=== PATIENT | female | born 1950 | race Caucasian/White ===

== ENCOUNTER → 2016-08-30 | Outpatient (CLI) | payer OTHER ==
--- NOTE | 2016-08-30 15:56 | BD ---
EXAMINATION TYPE: MG DEXA axial skeleton. DATE OF EXAM: 08/30/2016 1:37 PM COMPARISON: 03.02.2009 CLINICAL HISTORY: Z78.0 POST MENOPAUSAL W/O HRT Height: 63.3 Weight: 180 FRAX RISK QUESTIONS: Alcohol (3 or more units per day): NO Family History (Parent hip fracture): NO BROKEN HIPS, BUT FAMILY HX Glucocorticoids (More than 3mos): NO (Ex: prednisone, prednisolone, methylprednisolone, dexamethasone, and hydrocortisone). History of Fracture in Adulthood: YES Secondary Osteoporosis: NO 1. Type 1 Diabetes: NO 2. Hyperthyroidism: NO 3. Menopause before 45: YES 4. Malnutrition: NO 5. Chronic liver disease: NO Rheumatoid Arthritis: NO Current Tobacco Use: NO RISK FACTORS HISTORY OF: Other Fractures since Age 51: RT ELBOW AND LT ANKLE When: AGE 55 Family History of Osteoporosis: YES, FATHER AND MOTHER, BROTHERS X2 AND SISTERS X2, Smoke tobacco: QUIT 30 YRS AGO Drink Alcohol: NONE Active: TRY TO BE Diet low in dairy products/other sources of calcium: NO Postmenopausal woman: YES, TOTAL HYST AT 40 YRS OLD Adrenal Insufficiency: NO MEDICATIONS: Additional Medications: BP MEDS, ZANTAC, VIT D Additional History: NONE TO NOTE EXAM MEASUREMENTS: Bone mineral densitometry was performed using the [employer] System. Bone mineral density as measured about the Lumbar spine is: ----- L1-L4(G/cm2): 0.913 T Score Values are as follows: ----- L1: -3.0 ----- L2: -2.7 ----- L3: -2.0 ----- L4: -1.5 ----- L1-L4: -2.2 Bone mineral density FIRST BONE DENSITY TEST FOR HER ......BASELINE Bone mineral density about the R hip (g/cm2): 0.752 Bone mineral density about the L hip (g/cm2): 0.730 T Score values are as follows: -----R Neck: -2.0 -----L Neck: -2.2 -----R Total: -2.0 -----L Total: -2.2 Bone mineral density BASELINE STUDY TODAY FRAX %'S: 18.2% CHANCE FOR A MAJOR OSTEOPOROTIC FX AND A 3.1% CHANCE FOR A HIP FX......PROBABILITY OF FX IN 10 YRS TIME IMPRESSION: Osteoporosis (T Score less than -2.5) as noted by T Score values at the There is increased fracture risk and therapy is usually indicated based on age. Re-Screen 1-2 years Bone density is present within the lumbar spine. NOTE: T-SCORE=SD OF THE YOUNG ADULT MEAN.
--- NOTE | 2016-09-03 09:45 | MM ---
Reason for exam: screening (asymptomatic). Last mammogram was performed 1 year and 3 months ago. History: Patient is postmenopausal. Family history of breast cancer in maternal grandmother at age 65. Physical Findings: A clinical breast exam by your physician is recommended on an annual basis and results should be correlated with mammographic findings. MG Screening Mammo w CAD Bilateral CC and MLO view(s) were taken. Prior study comparison: May 30, 2015, bilateral MG screening mammo w CAD. There are scattered fibroglandular densities. No significant changes when compared with prior studies. ASSESSMENT: Benign, BI-RAD 2 RECOMMENDATION: Routine screening mammogram of both breasts in 1 year.
== END | disposition home or self-care (01) ==
LOC: RADMAMWWP 13:34
PROVIDERS: ATTEND Family Medicine
DX: Z12.31 Encounter for screening mammogram for malignant neoplasm of breast (principal); Z78.0 Asymptomatic menopausal state; M81.0 Age-related osteoporosis without current pathological fracture
CPT/HCPCS: 77080; G0202

== ENCOUNTER → 2017-01-14 | Outpatient (CLI) | payer MEDICARE, OTHER ==
[~2017-01-14] MED LIST: DENOSUMAB 60 MG/ML 1 ML SYRINGE SQ ONE
[2017-01-14 14:52] VITALS: BP 138/82; PULSE 97; RESP 14; TEMP 98.8
== END | disposition home or self-care (01) ==
LOC: PROCWHC3 14:23
PROVIDERS: ATTEND Family Medicine
DX: M81.0 Age-related osteoporosis without current pathological fracture (principal)
CPT/HCPCS: 96372; J0897

== ENCOUNTER → 2017-09-18 | Outpatient (CLI) | payer MEDICARE, OTHER ==
--- NOTE | 2017-09-22 11:02 | MM ---
Reason for exam: screening (asymptomatic). Last mammogram was performed 1 year and 1 month ago. History: Patient is postmenopausal. Family history of breast cancer in maternal grandmother at age 65. Physical Findings: A clinical breast exam by your physician is recommended on an annual basis and results should be correlated with mammographic findings. MG 3D Screening Mammo W/Cad Bilateral CC and MLO view(s) were taken. Prior study comparison: August 30, 2016, bilateral MG screening mammo w CAD. May 30, 2015, bilateral MG screening mammo w CAD. There are scattered fibroglandular densities. No suspicious abnormality. No significant changes when compared with prior studies. ASSESSMENT: Negative, BI-RAD 1 RECOMMENDATION: Routine screening mammogram of both breasts in 1 year.
== END | disposition home or self-care (01) ==
LOC: RADMAMWWP 14:42
PROVIDERS: ATTEND Family Medicine
DX: Z12.31 Encounter for screening mammogram for malignant neoplasm of breast (principal)
CPT/HCPCS: 77063; 77067

== ENCOUNTER 2018-03-15 18:31 | Observation (INO) | payer MEDICARE, OTHER ==
--- NOTE | 2018-03-15 19:03 | ED ---
General Adult HPI - General Chief complaint: Extremity Injury, Upper Stated complaint: Trans from [facility]Fractures Source: EMS Mode of arrival: EMS Limitations: no limitations - History of Present Illness Initial comments: Dictation was produced using [employer] dictation software. please excuse any grammatical, word or spelling errors. Chief Complaint: 67-year-old female with past medical history of hypertension presents to our emergency department via transfer for orthopedic injuries. History of Present Illness: Patient is a 67-year-old female. Proximal thigh 3 PM she was taken a step down in her garage when she inverted her ankle. She felt a pop causing her to fall forward. She reached out with her left upper extremity and felt immediate pain in her left upper extremity. She was brought emergently to [facility] where she was evaluated. She is found to have a trimalleolar fracture of the left ankle with 1 cm lateral displacement of the talus and impacted comminuted transverse fracture of the distal radius. Ankle was reduced and splinted by Dr. Panchal at [facility]. The left wrist injury was splinted. Patient is transferred to our facility per request. They'll is really do not have orthopedic surgery at their facility. Documentation patient's fracture was closed however there was some skin tenting which improved post adduction and splint application. The ROS documented in this emergency department record has been reviewed and confirmed by me. Those systems with pertinent positive or negative responses have been documented in the HPI. All other systems are other negative and/or noncontributory. - Related Data Home Medications Medication Instructions Recorded Confirmed Acetaminophen Tab [Tylenol Tab] 500 mg PO Q6H 01/14/17 01/14/17 Calcium Carbonate [Calcium] 1,200 mg PO DAILY 01/14/17 01/14/17 Cholecalciferol [Vitamin D3] 1,000 unit PO DAILY 01/14/17 01/14/17 Lisinopril 40 mg PO DAILY 01/14/17 01/14/17 Pravastatin Sodium [Pravachol] 40 mg PO HS 01/14/17 01/14/17 Ranitidine HCl 150 mg PO HS PRN 01/14/17 01/14/17 Tolterodine Tartrate [Detrol LA] 2 mg PO DAILY 01/14/17 01/14/17 Allergies Allergy/AdvReac Type Severity Reaction Status Date / Time Penicillins Allergy Rash/Hives Verified 03/15/18 18:54 Wqr[place]a-Wqy-Wct Reductase Allergy Rash/Hives Verified 03/15/18 18:54 Inhibitor Review of Systems ROS Statement: Those systems with pertinent positive or pertinent negative responses have been documented in the HPI. ROS Other: All systems not noted in ROS Statement are negative. Past Medical History Past Medical History: Unable to Obtain History of Any Multi-Drug Resistant Organisms: None Reported Past Surgical History: Unable to Obtain Past Psychological History: No Psychological Hx Reported Smoking Status: Former smoker Past Alcohol Use History: None Reported Past Drug Use History: None Reported General Exam - General Exam Comments Initial Comments: PHYSICAL EXAM: General Impression: Alert and oriented x3, not in acute distress HEENT: Normocephalic atraumatic, extra-ocular movements intact, pupils equal and reactive to light bilaterally, mucous membranes moist. Cardiovascular: Heart regular rate and rhythm, S1&S2 audible, no murmurs, rubs or gallops Chest: Lungs clear to auscultation bilaterally, no rhonchi, no wheeze, no rales Abdomen: Bowel sounds present, abdomen soft, non-tender, non-distended, no organomegaly Musculoskeletal: Splint application to left upper and left lower extremity. There is good cap refill 2 to distal tips. She has intact sensation to light touch. Motor: Power 5/5 bilaterally, no focal deficits noted Neurological: CN II-XII grossly intact, no focal motor or sensory deficits noted Skin: Intact with no visualized rashes Psych: Normal affect and mood Limitations: no limitations Course Vital Signs 03/15/18 18:50 Temperature 98.7 F Pulse Rate 111 H Respiratory 18 Rate Blood Pressure 131/59 O2 Sat by Pulse 96 Oximetry Medical Decision Making - Medical Decision Making ED course: 67-year-old female presents to us via EMS from [facility] for orthopedic surgery care. Arrival are within acceptable limits. Patient appears stable at this time. Prior to patient's arrival case was discussed with Dr. Akers was willing to accept the patient. He requested patient be splinted and transferred for orthopedic surgery. Patient pain is controlled at this moment. Images were uploaded into our computer. Patient be admitted to Dr. Hodges and with orthopedic surgery on consult. Disposition Clinical Impression: Fracture Disposition: ADMITTED IP TO THIS HOSP Condition: Fair Referrals: Scot Hodges MD [Primary Care Provider] - 1-2 days Decision Time: 19:22
[2018-03-15] MEDS ORDERED: NALOXONE 0.4 MG/ML 1 ML VIAL IV PRN (19:22)
[2018-03-15] MEDS: MORPHINE SULFATE 4 MG/ML SYRINGE IV PRN (19:56)
[2018-03-15] MEDS: SODIUM CHLORIDE 0.9% 1,000 ML IV SCH (19:58)
[2018-03-15] MEDS: oxyCODONE-APAP 5-325MG 1 EACH TAB PO PRN (20:50)
[2018-03-16] MEDS: MORPHINE SULFATE 4 MG/ML SYRINGE IV PRN ×4 (00:12→12:28)
[2018-03-16] MEDS: oxyCODONE-APAP 5-325MG 1 EACH TAB PO PRN ×6 (01:11→21:19)
[2018-03-16] MEDS: SODIUM CHLORIDE 0.9% 1,000 ML IV SCH ×2 (05:29→21:18)
[2018-03-16] MEDS: HYDROmorphone 1 MG/ML 1 ML SYRINGE IVP PRN ×2 (11:00→15:20)
[2018-03-16] MEDS ORDERED: FAMOTIDINE 20 MG TAB PO PRN (11:06)
[2018-03-16] MEDS ORDERED: ACETAMINOPHEN TAB 500 MG TAB PO PRN (11:06)
--- NOTE | 2018-03-16 11:56 | XR ---
EXAMINATION TYPE: XR wrist complete LT DATE OF EXAM: 03/16/2018 CLINICAL HISTORY: Left wrist pain after injury TECHNIQUE: Frontal, lateral and oblique images of the left wrist are obtained. Scaphoid view was als o obtained. COMPARISON: 03/15/2018 FINDINGS: Although outside images are submitted for comparison. Images are suboptimal after scant an d nondiagnostic. There is dorsal displacement of the comminuted intra-articular distal radial fractur e. Dorsal displacement measures approximately 6 mm with minimal apex volar angulation and overlying s oft tissue swelling. There is diffuse osseous demineralization. No additional fracture is seen althou gh evaluation is slightly limited given overlying casting material. Mild arthropathy at the first car pometacarpal joint is seen as osteophytes. IMPRESSION: Casting of a minimally dorsally displaced comminuted intra-articular slightly volar angul ated distal radial fracture.
[2018-03-16] MEDS: GABAPENTIN 400 MG CAP PO SCH ×3 (12:39→21:19)
--- NOTE | 2018-03-16 12:42 | XR ---
EXAMINATION TYPE: XR ankle complete LT DATE OF EXAM: 03/16/2018 CLINICAL HISTORY: Left ankle pain after injury TECHNIQUE: Frontal, lateral and oblique images of the left ankle are obtained. COMPARISON: None. FINDINGS: Outside images are nondiagnostic as a bloated. Cast material overlies the left ankle. Ther e is diastases of a medial malleolus fracture with distraction measuring 5 mm and anterior displaceme nt of approximately 8 mm on the lateral view. Obliquely oriented comminuted fractures of the distal f ibula is displaced approximately 4 mm posteriorly. Posterior malleolus fracture is mildly displaced 4 mm. No additional fracture is seen. Talar dome is maintained. There is slight medial subluxation of the tibia on the talus. IMPRESSION: Casting of a trimalleolar fracture with displaced fracture fragments as described above.
[2018-03-16] MEDS ORDERED: DIAZEPAM 5 MG TAB PO PRN (13:07)
--- NOTE | 2018-03-16 13:38 | HP ---
HISTORY AND PHYSICAL CHIEF COMPLAINT: Fall with fracture of the left ankle and left arm. HISTORY OF PRESENT ILLNESS: This is the first known admission for this 67-year-old otherwise healthy white female. She apparently missed a step in the garage, twisted her ankle, fell and then broke her left wrist. She came to emergency room where she was found to have a trimalleolar fracture of the left ankle and radial fracture left wrist. REVIEW OF SYSTEMS: She has had no syncope, chest pain, orthopnea, loss of consciousness, loss of sphincter control, etc. Review of systems she has had no neurologic problems, change in vision or hearing, cough, hemoptysis, shortness of breath, chest pain, palpitations, murmurs, rheumatic fever, orthopnea, PND, abdominal pain, nausea, vomiting, hematemesis, melena, hematochezia, colitis, diverticulosis, diverticulitis, hemorrhoids, jaundice, hepatitis, cirrhosis, hematuria, renal failure, arthralgias, diabetes, etc. Past medical history reveals that she cannot take STATINS. In terms of medication, she is a gabapentin 800 mg 4 times a day for a post herpetic neuralgia. She is on pravastatin 40 at bedtime, ranitidine 150 a day, lisinopril 40 once a day, Pepcid, vitamin D. The remainder of her history is unremarkable and noncontributory. She used to smoke, but has quit. She does not drink. PHYSICAL EXAMINATION: Blood pressure 122/80, pulse of 80, respirations 16. She is afebrile. GENERAL: She appeared to be well developed, well nourished, in no acute distress. Skin color is normal. Skin is warm, dry. Lymph nodes are not enlarged. Head, ears, eyes, nose, mouth, and throat were normal. Neck veins not distended. Thyroid enlarged. Chest is clear. Cardiac exam is normal sinus rhythm and there are no murmurs or extra sounds. Abdomen is soft, nontender without any visceromegaly or masses. Bowel sounds present. Extremities demonstrated a splint on her left forearm and wrist as well as her left lower leg and ankle. Neurologically, she is intact. IMPRESSION: 1. Trimalleolar fracture of the left ankle. 2. Fracture of the distal left radius. 3. Mild essential hypertension. PLAN: 1. Bed rest. 2. IV fluids. 3. Orthopedic consult. She is cleared for surgery. JAMAAL / REAL: [id number] /
--- NOTE | 2018-03-16 14:35 | P.CNOR ---
History of Present Illness - [facility] Consult date: 03/16/18 Requesting physician: Tanvir Akers Consult reason: fracture History of present illness: Patient is a pleasant 67-year-old female seen at bedside this afternoon. She was admitted through the emergency department yesterday, 03/15/2018 after a fall at her niece's house. She stumbled down the last few steps which her ankle gave way and then also landed on her left wrist. She developed immediate significant pain at the left wrist and left ankle. X-rays at [facility] showed displaced fractures at the left distal radius as well as a left ankle trimalleolar fracture. She was transferred to [facility] for further orthopedic evaluation management. She continues to have pain at the left wrist and left ankle as expected. She has no other complaints. She has no elbow or shoulder pain. There is no numbness or tingling. She has no knee or hip pain. Review systems negative for fever, chills, chest pain, shortness breath, calf pain, numbness, tingling, slurred speech or other. Review of Systems All systems: negative Constitutional: Denies chills, Denies fever Eyes: denies blurred vision, denies pain Ears, nose, mouth and throat: Denies headache, Denies sore throat Cardiovascular: Denies chest pain, Denies shortness of breath Respiratory: Denies cough Gastrointestinal: Denies abdominal pain, Denies diarrhea, Denies nausea, Denies vomiting Genitourinary: Denies dysuria, Denies hematuria Musculoskeletal: Denies myalgias Integumentary: Denies pruritus, Denies rash Neurological: Denies numbness, Denies weakness Psychiatric: Denies anxiety, Denies depression Endocrine: Denies fatigue, Denies weight change Past Medical History Past Medical History: Hyperlipidemia, Hypertension History of Any Multi-Drug Resistant Organisms: None Reported Past Surgical History: Orthopedic Surgery Additional Past Surgical History / Comment(s): right wrist, c section X 2, hysterectomy Past Anesthesia/Blood Transfusion Reactions: No Reported Reaction Past Psychological History: No Psychological Hx Reported Smoking Status: Former smoker Past Alcohol Use History: None Reported Past Drug Use History: None Reported - Past Family History Mother Family Medical History: Cancer, Hyperlipidemia, Hypertension Father Family Medical History: Asthma, Cancer, CVA/TIA, Hyperlipidemia, Hypertension Medications and Allergies Home Medications Medication Instructions Recorded Confirmed Type Acetaminophen Tab [Tylenol Tab] 500 mg PO Q6H PRN 01/14/17 03/15/18 History Calcium Carbonate [Calcium] 1,200 mg PO DAILY 01/14/17 03/15/18 History Cholecalciferol [Vitamin D3] 1,000 unit PO DAILY 01/14/17 03/15/18 History Lisinopril 40 mg PO DAILY 01/14/17 03/15/18 History Pravastatin Sodium [Pravachol] 40 mg PO HS 01/14/17 03/15/18 History Ranitidine HCl 150 mg PO HS PRN 01/14/17 03/15/18 History Ascorbic Acid [Vitamin C] 500 mg PO DAILY 03/15/18 03/15/18 History Gabapentin 800 mg PO QID 03/15/18 03/15/18 History Multivitamin,Therapeutic [Thera] 1 tab PO DAILY 03/15/18 03/15/18 History Solifenacin Succinate [Vesicare] 5 mg PO DAILY 03/15/18 03/15/18 History Aspirin 325 mg PO BID #60 tab 03/16/18 Rx Docusate [Colace] 100 mg PO BID #60 capsule 03/16/18 Rx oxyCODONE HCL/ACETAMINOPHEN 1 tab PO Q4HR PRN #30 tab 03/16/18 Rx [Percocet 5-325 mg] Allergies Allergy/AdvReac Type Severity Reaction Status Date / Time Penicillins Allergy Rash/Hives Verified 03/15/18 19:34 Qcjkcwe-Vyu-Vhh Reductase Allergy Rash/Hives Verified 03/15/18 19:34 Inhibitor Physical Examination Inspection of the left upper extremity shows swelling/edema at the left wrist with mild deformity. There is no erythema or open wounds. Neurovascular status intact with 2+ radial pulse and less than 2 second capillary refill in all digits. There is pain with passive range of motion at the left elbow. Motor and sensation is grossly intact throughout the left upper extremity. Inspection of the left lower extremity shows fracture blisters at the medial lateral aspect of the distal left lower extremity. There is no signs of infection. There is no erythema. No open wounds. There is swelling at the left ankle with mild deformity. Calf is soft and nontender. There is 2+ dorsalis pedis pulse and less than 2 second refill in all digits. She is able to wiggle all toes. Sensation to light touch is intact throughout the left lower extremity. She has painless range of motion of the left knee. Results X-rays of the left wrist show a comminuted intra-articular dorsally displaced left distal radius fracture. X-rays of the left ankle show a comminuted trimalleolar fracture with lateral subluxation. - Diagnostic results Wrist/Hand x-ray: report reviewed, image reviewed Ankle/Foot x-ray: report reviewed, image reviewed Assessment and Plan (1) Fracture Narrative/Plan: Well padded splints were applied to the left upper extremity and left lower extremity to mobilize and stabilize the fractures. I advised to continue elevation as well as ice. She is to be nonweightbearing with left lower extremity and left upper extremity. Continue pain management and DVT prophylaxis. Medical management per internal medicine. She may use a wheelchair or platform walker for mobilization. She may discharge from an orthopedic standpoint and she was instructed to follow-up in office in 1 week to assess swelling and consideration for proceeding with surgical intervention. Current Visit: Yes Status: Acute Priority: Medium Code(s): T14.8XXA - OTHER INJURY OF UNSPECIFIED BODY REGION, INITIAL ENCOUNTER SNOMED Code(s): 963351606 (2) Left radial fracture Current Visit: Yes Status: Acute Priority: Medium Code(s): S52.92XA - UNSP FRACTURE OF LEFT FOREARM, INIT FOR CLOS FX SNOMED Code(s): 13640305 (3) Trimalleolar fracture Current Visit: Yes Status: Acute Priority: Medium Code(s): S82.853A - DISPLACED TRIMALLEOLAR FRACTURE OF UNSP LOWER LEG, INIT SNOMED Code(s): 683206114 Time with Patient: Greater than 30 (Reviewing her neurologic studies, in reviewing patient, examining patient, applying sugar tong splint to left upper extremity, applying posterior and stirrup splint to the left lower extremity)
[2018-03-16] MEDS: diphenhydrAMINE 25 MG CAP PO PRN (15:57)
--- NOTE | 2018-03-16 19:53 | PN ---
PROGRESS NOTE DATE OF SERVICE: 03/16/2018 CHIEF COMPLAINT: Fracture of the left ankle, left wrist. HISTORY OF PRESENT ILLNESS: This lady is doing fairly well except for the discomfort. She has had no shortness of breath. She has had no nausea. Temperature has been normal. PHYSICAL EXAM: Color is good. VITAL SIGNS: Normal. Chest is clear. Cardiac exam is normal. Abdomen is soft, nontender. IMPRESSION: 1. Left trimalleolar fracture. 2. Left radial fracture of the wrist. 3. Hypertension. PLAN: Await for orthopedic decision as to when she will undergo surgery. MMODL / IJN: [id number] /
[2018-03-17 01:02] VITALS: RESP 16
[2018-03-17] MEDS: oxyCODONE-APAP 5-325MG 1 EACH TAB PO PRN ×4 (01:17→13:45)
[2018-03-17] MEDS: SODIUM CHLORIDE 0.9% 1,000 ML IV SCH ×2 (05:12→13:43)
[2018-03-17 07:43] VITALS: BP 125/72; PULSE 104; TEMP 98.5
[2018-03-17] MEDS ORDERED: LISINOPRIL 20 MG TAB PO SCH (09:00)
[2018-03-17] MEDS ORDERED: TROSPIUM CHLORIDE 20 MG TABLET PO SCH (09:00)
[2018-03-17] MEDS ORDERED: CALCIUM CARBONATE 500 MG CHEWABLE PO SCH (09:00)
[2018-03-17] MEDS: GABAPENTIN 400 MG CAP PO SCH ×2 (09:33→13:45)
[2018-03-17] MEDS: diphenhydrAMINE 25 MG CAP PO PRN (09:35)
--- NOTE | 2018-03-17 11:22 | P.PN ---
Subjective Progress Note Date: 03/17/18 Principal diagnosis: Left distal radius fracture, left trimalleolar ankle fracture patient is seen at bedside this morning. She feels her pain at the left wrist and left ankle is stabilized. She has no new complaints. She denies numbness or tingling in the upper or lower extremity. She has no calf pain, fever, chills, chest pain or shortness breath. Objective - Vital Signs Vital signs: Vital Signs Temp 98.5 F 03/17/18 07:42 Pulse 104 H 03/17/18 07:42 Resp 16 03/17/18 07:42 BP 125/72 03/17/18 07:42 Pulse Ox 98 03/17/18 07:42 Intake & Output 03/16/18 03/17/18 03/17/18 18:59 06:59 18:59 Intake Total 240 1000 180 Balance 240 1000 180 Intake: Intake, IV Titration 1000 Amount Sodium Chloride 0.9% 1, 1000 000 ml @ 100 mls/hr IV . Q10H [facility] Rx#:[id number] Oral 240 180 Other: Voiding Method Bedpan # Voids 2 3 2 # Bowel Movements 1 1 - Exam inspection of the left upper [place] shows well-padded splint in place. Neurovascular status is intact in all digits with motor and sensation. Less than 2 second capillary refill is present. Inspection of the left lower extremity shows a well-padded splint placed. Neurovascular status intact in all digits with motor and sensation. Less than 2 second capillary refill is present - Constitutional General appearance: Present: no acute distress Assessment and Plan (1) Fracture Narrative/Plan: she has swelling and fracture blisters thus surgery will not be performed until swelling has resided and blisters resolved. I advised to continue elevation as well as ice. She is to be nonweightbearing with left lower extremity and left upper extremity. Continue pain management and DVT prophylaxis. Medical management per internal medicine. She may use a wheelchair or platform walker for mobilization. She may discharge from an orthopedic standpoint and she was instructed to follow-up in office in 1 week to assess swelling and consideration for proceeding with surgical intervention. Current Visit: Yes Status: Acute Priority: Medium Code(s): T14.8XXA - OTHER INJURY OF UNSPECIFIED BODY REGION, INITIAL ENCOUNTER SNOMED Code(s): 686728107 (2) Left radial fracture Current Visit: Yes Status: Acute Priority: Medium Code(s): S52.92XA - UNSP FRACTURE OF LEFT FOREARM, INIT FOR CLOS FX SNOMED Code(s): 30044149 (3) Trimalleolar fracture Current Visit: Yes Status: Acute Priority: Medium Code(s): S82.853A - DISPLACED TRIMALLEOLAR FRACTURE OF UNSP LOWER LEG, INIT SNOMED Code(s): 760476520
--- NOTE | 2018-03-18 04:56 | DS ---
DISCHARGE SUMMARY CHIEF COMPLAINT: Fall with fracture of the left wrist and left ankle. HISTORY OF PRESENT ILLNESS AND PHYSICAL EXAM: Details of this lady's history and physical can be found in the initial workup. LABORATORY STUDIES: While she was in the hospital she had laboratory studies, details of which can be found in the laboratory section of her chart. COURSE IN HOSPITAL: After admission she was placed on bedrest, started on intravenous fluids and analgesics. See was seen by Surgery and they felt that she could be discharged to outpatient followup. She will have her surgery in 2 to 3 weeks after the swelling has receded. FINAL DIAGNOSES: 1. Trimalleolar fracture of the left ankle. 2. Left radial fracture. 3. Hypertension. OPERATIONS: None. CONSULTATIONS: Orthopedics. She is improved. MMELIZA / REAL: [id number] /
== END 2018-03-17 14:32 | disposition home health service (06) ==
LOC: EC 18:31 → INTOOBSV 19:24 → 4SSUR 19:24
PROVIDERS: ADMIT Family Medicine; ATTEND Family Medicine
DX: S52.502A Unspecified fracture of the lower end of left radius, initial encounter for closed fracture (principal); S82.852A Displaced trimalleolar fracture of left lower leg, initial encounter for closed fracture; I10 Essential (primary) hypertension; B02.29 Other postherpetic nervous system involvement; E78.5 Hyperlipidemia, unspecified; W10.9XXA Fall (on) (from) unspecified stairs and steps, initial encounter; Y92.008 Other place in unspecified non-institutional (private) residence as the place of occurrence of the external cause; Z79.899 Other long term (current) drug therapy; Z79.82 Long term (current) use of aspirin; Z88.0 Allergy status to penicillin; Z88.8 Allergy status to other drugs, medicaments and biological substances; Z87.891 Personal history of nicotine dependence; W01.0XXA Fall on same level from slipping, tripping and stumbling without subsequent striking against object, initial encounter; Z82.49 Family history of ischemic heart disease and other diseases of the circulatory system; Z82.5 Family history of asthma and other chronic lower respiratory diseases; Z82.3 Family history of stroke; Z80.9 Family history of malignant neoplasm, unspecified
CPT/HCPCS: 96376; 96375; 96361; 96374; 99285; 97162; 97166; 73110; 73610; G0378 ×4; J2270 ×2; J1170

== ENCOUNTER → 2018-03-25 | Outpatient (CLI) | payer MEDICARE ==
--- NOTE | 2018-03-25 13:29 | CT ---
EXAMINATION TYPE: CT ankle LT wo con DATE OF EXAM: 03/25/2018 COMPARISON: Left ankle radiographs dated 03/25/2018 HISTORY: Left ankle fracture. TECHNIQUE: Standard unenhanced axial CT was performed of the left ankle with coronal and sagittal ref ormats for review. FINDINGS: Overlying casting material is seen. There is subcutaneous edema over the distal left fibula and extending circumferentially around the ankle, hindfoot and midfoot without subcutaneous emphysem a. Evaluation of the tendons and ligaments are limited on CT and further limited secondary to edema h owever there is presumed injury of the peroneus brevis tendon and suspicion for peroneus longus tendo n injury. There is redemonstration of a comminuted displaced distal fibular fracture at 2 locations approximate ly 8 mm from the most distal aspect of the fibula that is nondisplaced and approximately 4.8 cm in th e most distal aspect the fibula, displaced. This fracture fragment is displaced 1.1 cm laterally and 6.6 cm posteriorly again with comminution. There is medial subluxation of the talotibial joint. There is a comminuted primarily transversely oriented fracture of the medial malleolus with diastases of the primary fracture site of 7 mm. There is apex medial angulation of this fracture. Additionally there is a displaced posterior malleolus fracture that is primarily vertically oriented. This is sli ghtly oblique oriented lateral to medial and intra-articular. This is displaced 3 mm posteriorly and 4 mm superiorly. Talar dome appears intact although sclerosis may be from impaction injury. There is a small fragment adjacent to the cuboid at its inferior margin that could relate to avulsion injury f rom the base of the fifth metatarsal as it is along the course of the peroneus brevis. Calcaneus appe ars intact. IMPRESSION: 1. Casted bimalleolar fracture with intra-articular extension, comminution, displacement and angulati on all described above with overlying soft tissue swelling. 2. Suspicion for avulsion fracture of the base of the fifth metatarsal along the peroneus brevis. 3. Slight sclerosis of the talar dome possibly from impaction injury. No osteochondral defect or depr ession. No overt fracture deformity.
--- NOTE | 2018-03-25 13:33 | CT ---
EXAMINATION TYPE: CT wrist LT wo con DATE OF EXAM: 03/25/2018 COMPARISON: Left wrist radiograph dated 03/16/2018 HISTORY: Pain post trauma. Pre Op scan CT DLP: 339.2 mGycm Automated exposure control for dose reduction was used. FINDINGS: There is redemonstration of a comminuted impaction fracture of the distal radius with apex volar angu lation with angle measuring 130 degrees and dorsal displacement of the distal fracture fragment 7 mm. Fracture fragment is displaced dorsal to the lunate. There is no scapholunate carpal carpal interspa [place] widening. Fractures fragment is also noted within the distal radioulnar joint. Subchondral cysts are seen of the distal ulna with no ulnar styloid fracture identified. Degenerative changes are noted at the first carpometacarpal joint displayed as osteophytes and subchondral cysts with joint space n arrowing. Evaluation of the ligaments and tendons are limited on CT. Mild soft tissue swelling is see n about the wrist. IMPRESSION: REDEMONSTRATION OF A CASTED INTRA-ARTICULAR MINIMALLY VOLAR ANGULATED DORSALLY DISPLACED DISTAL RADIA L IMPACTION FRACTURE DESCRIBED ABOVE.
== END | disposition home or self-care (01) ==
LOC: RADCTMAIN 12:17
PROVIDERS: ATTEND Orthopaedic Surgery Sports Medicine
DX: S82.842A Displaced bimalleolar fracture of left lower leg, initial encounter for closed fracture (principal); M89.8X7 Other specified disorders of bone, ankle and foot; S52.512D Displaced fracture of left radial styloid process, subsequent encounter for closed fracture with routine healing

== ENCOUNTER 2018-04-03 10:13 | Day surgery (SDC) | payer MEDICARE ==
[2018-04-01 09:39] VITALS: BMI 29.7
[~2018-04-03 10:13] MED LIST changes: -DENOSUMAB 60 MG/ML 1 ML SYRINGE SQ ONE; +DEXAMETHASONE SOD PHOSPHATE 10 MG/ML 1 ML VIAL IV ONE; +MIDAZOLAM (PF) 2 MG/2 ML VIAL IV PRN; +ONDANSETRON 4 MG/2 ML VIAL IVP ONE; +ceFAZolin IN SWFI 2 GM/20 ML SYRINGE IVP ONE
[2018-04-03] MEDS: LACTATED RINGERS 1,000 ML IV SCH ×2 (10:49→17:06)
[2018-04-03] MEDS ORDERED: fentaNYL (PF) 50 MCG/ML 2 ML AMP IV ONE (11:51)
[2018-04-03] MEDS ORDERED: CLINDAMYCIN 900 MG in DEXTROSE 5% IN WATER 50 ML IVPB STA ×2 (12:13)
[2018-04-03] MEDS ORDERED: SUCCINYLCHOLINE CHLORIDE 100 MG/5 ML SYR IV ONE (12:21)
[2018-04-03] MEDS ORDERED: MIDAZOLAM 2 MG/2 ML VIAL ONE (12:21)
[2018-04-03] MEDS ORDERED: fentaNYL (PF) 50 MCG/ML 2 ML AMP ONE (12:21)
[2018-04-03] MEDS ORDERED: LIDOCAINE 1% INJ 10MG/ML (20 ML MDV) ONE (12:21)
[2018-04-03] MEDS ORDERED: PROPOFOL 10 MG/ML 20 ML VIAL IV ONE (12:21)
[2018-04-03] MEDS ORDERED: PHENYLEPHRINE-0.9% NACL SYG 1 MG/10 ML SYRINGE ONE (12:21)
[2018-04-03] MEDS ORDERED: ROPIVACAINE 5 MG/ML 30 ML VIAL ONE (12:21)
[2018-04-03] MEDS ORDERED: LACTATED RINGERS 1,000 ML IV ONE (13:05)
--- NOTE | 2018-04-03 14:05 | P.ONQ ---
Anesthesiology Proc Note - PNB - Peripheral Nerve Block Performed Right Popliteal Single Time Out Performed: Yes Indication: Acute Post-Operative Pain, Dx/Pain Location, Requested by physician Sedation Type: Sedate with meaningful contact maintained Preparation: Sterile Prep Position: Supine Catheter: None Needle Types: Kevin Needle Size: 100mm (4") Needle Gauge: 21 Technique: Ultrasound Injectate: 0.5% Ropivacaine (see comment for volume) (20ml) Blood Aspirated: No Pain Paresthesia on Injection Noted: No Resistance on Injection: Normal Events: Uneventful and Well Tolerated
--- NOTE | 2018-04-03 15:47 | XR ---
EXAMINATION TYPE: XR ankle limited LT, FL guidance operating room DATE OF EXAM: 04/03/2018 CLINICAL HISTORY: Open reduction internal fixation of a left ankle fracture TECHNIQUE: Fluoroscopy. COMPARISON: 03/16/2018 FINDINGS IMPRESSION: Fluoroscopic guidance was provided during procedure performed by Dr. Hansen. A total of 2 minutes and 28 seconds of fluoroscopic time was utilized during the procedure and 7 spo t images was acquired during open reduction internal fixation of a left ankle fracture.
--- NOTE | 2018-04-03 15:50 | P.OP ---
Date of Procedure: 04/03/18 Postoperative Diagnosis: 1. Closed left trimalleolar ankle fracture dislocation Procedure(s) Performed: 1. Closed left trimalleolar ankle fracture dislocation 2. Severe osteopenia with extremely poor bone quality Anesthesia: JOSE MARTIN regional Surgeon: True Hansen Conveyor Technician #1: Lukas Carrasco Estimated Blood Loss (ml): 50 IV fluids (ml): 1,200 Pathology: none sent Condition: stable Disposition: PACU Indications for Procedure: The patient is a 67-year-old female who presented when one of my partners was information assurance engineer with a left ankle fracture dislocation. She underwent closed reduction in the ER. She was admitted due to her inability to ambulate at home. She was seen by my partners PA who performed wound care to fracture blisters and placed her in a bulky Peter splint. She had a computed tomography scan of the ankle and was referred to my office. I met with the patient and her sister discussed treatment options. Her computed tomography scan showed a comminuted trimalleolar ankle fracture. We discussed the need for operative fixation when her soft tissue swelling subsided. We discussed potential risks and complications of surgery including but not limited to risks of anesthesia, superficial infection, deep infection, delayed wound healing, superficial wound necrosis, damage to local blood vessels or nerves, fracture nonunion, fracture malunion, failure of hardware, postoperative displacement, posterior medical arthritis, need for further surgery including fusion, difficulty ambulate and phone surgery, inability to ambulate following surgery, they to regain preinjury level of function, DVT, PE, other medical Locations, and possibly loss of life or limb. The patient voiced understanding of this and provided her consent to go forward with surgery. Operative Findings: The patient was seen in preoperative holding and had wrinkling of her skin and resolution of her hemorrhagic fracture blisters. Intraoperatively her bone quality was extremely poor and she had diffuse osteopenia. Her bone quality was so poor that fracture reduction clamps and hardware were unable to hold her bones reduced without fracturing them. Description of Procedure: The patient identified in preoperative holding and the correct left leg was marked with my initials. I reviewed the consent form with the patient and her sister. All their questions were answered. Popliteal and saphenous nerve block was placed by anesthesia. The patient was then brought back to the operating room. She was positioned on the OR table and a general anesthetic and preoperative antibiotics were administered. A beanbag was placed under the patient and she was positioned in the lateral decubitus position with the right side down and the unaffected left leg up. A tourniquet was applied proximal aspect of the thigh. The right leg was secured to the table with foam. All bony prominences were well-padded. An axillary roll was placed. A ramp was placed under the left leg to facilitate imaging. The left leg was then prepped and draped in the standard sterile fashion. Prior to starting surgery timeout was performed identifying the correct patient, operative extremity, and procedure. The patient's leg was then elevated, exsanguinated with an Esmarch bandage, and the tourniquet was inflated to 250 mmHg. An incision was marked out over the posterior lateral distal leg for a posterolateral approach to the ankle. The skin incision was marked out fci between the posterior border of the fibula and the Achilles tendon. It angled distally at the tip of the fibula. Skin incision with a scalpel and dissection was carried through the subcu tennis tissue tenotomy scissors. The fascia was incised longitudinally in line with the skin incision. I bluntly developed the interval anterior to the peroneal tendons to expose the distal fibula. There is a large amount of early callus formation due to the length of time it took the patient to clear for surgery. The fracture callus was taken down. The fibula was found to be highly comminuted. I attempted to reduce the fibula to gain length to help with reduction of the posterior malleolus. The patient's fibula was extremely osteopenic and the pointed reduction clamps fractured through the fibula with any attempts at holding the reduction. The posterior malleolus was found to be displaced. I then developed the interval between the peroneal tendons and the Achilles. The fascia over the FHL muscle belly was sharply incised. The FHL was retracted medially and the posterior malleolus was visualized. The apex of the fracture was gently debrided. The fracture site was freed up to facilitate reduction. Attention was then turned back to the fibula. The fibula was pulled out to length held digitally and 20.0625 K wires were placed across the fracture holding it reduced. I then placed a long precontoured distal fibula plate directly over the lateral aspect of the fibula. Nonlocking screws were placed proximally and locking screws were placed distal to the fracture. Due to the patient's extremely poor bone quality no lag screws were able to replace across the fracture. The plate bridged the area of comminution. Attention was then turned back to the posterior malleolus. A 2.7 mm plate was contoured over the posterior aspect of the distal tibia area 2 nonlocking screws were placed proximal to the fracture and 3 nonlocking screws were placed distally across the posterior malleolus fragment. Attention was then turned to the medial malleolus. A longitudinal incision was marked out directly over the medial malleolus. Dissection was carried down carefully through subcu tennis tissue with tenotomy scissors. The medial malleolus fragment was identified and carefully exposed up to the level of the shoulder the ankle. Early consolidating callus was sharply removed from the fracture site. A 2.0 mm drill bit was used to perforate the distal metaphysis of the tibia proximal to the fracture. A small [id number] reduction clamp was placed with 1 alexandra in this drill hole in the second alexandra at the tip of the medial malleolus. I gently teased the medial malleolus fracture fragment into place and tightened the clamp. Due to the patient's extremely poor bone quality the clamp started fracturing through her distal tibia about the reduction held. I then placed 2 nonlocking, solid, bicortical 2.7 mm screws through the malleolus. Final fluoroscopic images were taken showing the talus concentrically reduced within the ankle mortise on both views. Both wounds were copiously irrigated and closed in layers. A sterile dressing consisting of Betadine to Adaptic, 4 x 4, and web roll was applied. The drapes were taken down and a well-padded bulky Peter splint was placed at the ankle at neutral. The patient was awoken from her anesthetic, transferred to a gurney, and brought to PACU without the procedure well. Lukas Carrasco PA-C was required as a skilled personal injury legal assistant for patient positioning, surgical exposure, reduction of fracture, placement of hardware, closure of wounds, application of splint. Plan the patient is going to be admitted overnight for IV antibiotics and pain control. She is to remain strictly nonweightbearing on her left leg. She'll need close follow-up. She'll follow-up in 2 weeks for splint removal and wound inspection and x-rays. She will likely be placed into a cast at that time.
[2018-04-03] MEDS: HYDROmorphone 0.5 MG/0.5 ML SYRINGE IVP PRN ×2 (16:14→16:20)
[2018-04-03] MEDS ORDERED: HYDROcodone/APAP 5-325MG 1 EACH TAB PO PRN (16:18)
[2018-04-03] MEDS ORDERED: ONDANSETRON 4 MG/2 ML VIAL IVP PRN (16:18)
[2018-04-03] MEDS ORDERED: SENNOSIDES-DOCUSATE SODIUM 1 EACH TAB PO PRN (16:18)
[2018-04-03] MEDS ORDERED: HYDROmorphone 0.5 MG/0.5 ML SYRINGE IVP PRN ×2 (16:18)
[2018-04-03 17:22] LABS: Basophils % (A) 0 %; Eosinophils % (A) 0 %; HGB 11.7 gm/dL (11.4-16.0); Lymphocytes # (A) 0.9 k/uL (1.0-4.8); Lymphocytes % (A) 9 %; MCH 29.5 pg (25.0-35.0); MCHC 31.7 g/dL (31.0-37.0); MCV 93.1 fL (80.0-100.0); Mean Platelet Volume 6.8; Monocytes # (A) 0.2 k/uL (0-1.0); Monocytes % (A) 2 %; Neutrophils # (A) 8.5 k/uL (1.3-7.7); Neutrophils % (A) 88 %; Platelet Count 407 k/uL (150-450); RBC 3.98 m/uL (3.80-5.40); RDW 13.4 % (11.5-15.5); WBC 9.7 k/uL (3.8-10.6)
[2018-04-03] MEDS: CLINDAMYCIN 900 MG in DEXTROSE 5% IN WATER 50 ML IVPB SCH ×4 (18:03→23:36)
[2018-04-03] MEDS ORDERED: PRAVASTATIN SODIUM 40 MG TAB PO SCH (21:00)
[2018-04-03] MEDS: GABAPENTIN 400 MG CAP PO SCH (21:00)
[2018-04-04] MEDS: LACTATED RINGERS 1,000 ML IV SCH ×3 (04:02→09:48)
[2018-04-04] MEDS: HYDROcodone/APAP 5-325MG 1 EACH TAB PO PRN ×2 (05:30→12:12)
[2018-04-04] MEDS: CLINDAMYCIN 900 MG in DEXTROSE 5% IN WATER 50 ML IVPB SCH ×4 (07:10→12:13)
[2018-04-04 07:32] VITALS: RESP 16
[2018-04-04] MEDS ORDERED: CALCIUM CARBONATE 500 MG CHEWABLE PO SCH (09:00)
[2018-04-04] MEDS ORDERED: LISINOPRIL 20 MG TAB PO SCH (09:00)
[2018-04-04] MEDS ORDERED: ENOXAPARIN 40 MG/0.4 ML SYRINGE SQ SCH (09:00)
[2018-04-04] MEDS ORDERED: TROSPIUM CHLORIDE 20 MG TABLET PO SCH (09:00)
[2018-04-04] MEDS: GABAPENTIN 400 MG CAP PO SCH ×2 (09:46→12:13)
--- NOTE | 2018-04-04 11:24 | P.DS ---
Providers Date of admission: 04/03/2018 Expected date of discharge: 04/04/18 Attending physician: True Hansen Consults: 04/03/18 16:36 Consult Physician Routine Consulting Provider: Scot Hodges Consult Reason/Comments: Medical management Do you want consulting provider notified?: Yes Primary care physician: Scot Hodges - Discharge Diagnosis(es) (1) Left ankle pain Current Visit: Yes Status: Acute (2) Left wrist fracture Current Visit: Yes Status: Acute (3) Trimalleolar fracture Current Visit: No Status: Acute Priority: Medium Hospital Course: This is a pleasant 67-year-old female who presented with left bimalleolar ankle fracture who failed outpatient conservative therapy. She was admitted for open reduction internal fixation of left trimalleolar ankle fracture with application of short leg splint. The patient tolerated the procedure well and did well postoperatively. She was able to work with physical therapy today to increase mobility and ambulation. She is remain nonweightbearing on the left lower extremity. She does feel she is ready for discharge home today. Condition on day of discharge stable. Patient will be discharged home. Patient was cleared preoperatively for surgery by Dr. Hodges. Patient currently denies any nausea, vomiting, fever, or chills. Patient is eating and voiding freely without difficulty. Patient will remain strict nonweightbearing on the left lower extremity. She may use a knee scooter, walker, or crutches and ambulation. She should keep the left lower extremity leg splint intact and keep this clean and dry. She may elevate and apply ice to the left lower extremity for comfort support as needed. She'll plan to follow up with Dr. Hansen in the outpatient setting in 2 weeks for further evaluation. Prescriptions for [place], Colace, and aspirin have been written and sent to the pharmacy. She should take these prescriptions as prescribed. Patient does have a left short arm cast intact due to wrist fracture. She is not currently experiencing any significant pain at the left wrist, elbow, or shoulder. She is able to wiggle all fingers of the left hand without difficulty. She is neurovascularly intact left upper extremity.. Patient did have an episode of hypotension yesterday. Patient will be cleared for discharge from an orthopedic standpoint pending clearance by medicine following her episode of hypotension. Physical Exam on day of discharge: Patient is awake, alert, and oriented 3 Vital signs stable Good chest excursion with deep inspiration and expiration Abdomen soft nontender No signs or symptoms of DVT; no calf pain on the right Bulky Peter splint dressing intact over the left lower extremity Splint is clean, dry, and intact Patient's toes are warm with good vascular refill Neurovascularly intact left lower extremity Mild tenderness with palpation over the left knee Patient has difficulty wiggling toes of the left foot Evidence of a left short arm cast intact which is clean and dry No significant pain with palpation at the left elbow or left shoulder Patient able to wiggle all fingers of left hand without significant difficulty Neurovascularly intact left upper extremity Procedures: Open reduction internal fixation of left trimalleolar ankle fracture with application of short leg splin Patient Condition at Discharge: Stable Plan - Discharge Summary New Discharge Prescriptions: New Aspirin 325 mg PO DAILY #14 tab Docusate [Colace] 100 mg PO BID #60 capsule Hydrocodone/Acetaminophen [[place] 10-325] 1 tab PO Q6H PRN 7 Days #40 tab PRN Reason: Pain No Action Cholecalciferol [Vitamin D3] 2,000 unit PO DAILY Acetaminophen Tab [Tylenol] 500 mg PO Q6H PRN PRN Reason: Pain Pravastatin Sodium [Pravachol] 40 mg PO HS Calcium Carbonate [Calcium] 1,200 mg PO DAILY Lisinopril 40 mg PO DAILY Gabapentin 800 mg PO QID Solifenacin Succinate [Vesicare] 5 mg PO DAILY Multivitamin,Therapeutic [Thera] 1 tab PO DAILY Aspirin 325 mg PO BID #60 tab Docusate [Colace] 100 mg PO BID #60 capsule oxyCODONE HCL/ACETAMINOPHEN [Percocet 5-325 mg] 1 tab PO Q4HR PRN #30 tab PRN Reason: Pain Cod Liver Oil 1 each PO DAILY Discharge Medication List Acetaminophen Tab [Tylenol] 500 mg PO Q6H PRN 01/14/17 [History] Calcium Carbonate [Calcium] 1,200 mg PO DAILY 01/14/17 [History] Cholecalciferol [Vitamin D3] 2,000 unit PO DAILY 01/14/17 [History] Lisinopril 40 mg PO DAILY 01/14/17 [History] Pravastatin Sodium [Pravachol] 40 mg PO HS 01/14/17 [History] Gabapentin 800 mg PO QID 03/15/18 [History] Multivitamin,Therapeutic [Thera] 1 tab PO DAILY 03/15/18 [History] Solifenacin Succinate [Vesicare] 5 mg PO DAILY 03/15/18 [History] Aspirin 325 mg PO BID #60 tab 03/16/18 [Rx] Docusate [Colace] 100 mg PO BID #60 capsule 03/16/18 [Rx] oxyCODONE HCL/ACETAMINOPHEN [Percocet 5-325 mg] 1 tab PO Q4HR PRN #30 tab [Rx] Cod Liver Oil 1 each PO DAILY 04/01/18 [History] Aspirin 325 mg PO DAILY #14 tab 04/03/18 [Rx] Docusate [Colace] 100 mg PO BID #60 capsule 04/03/18 [Rx] Hydrocodone/Acetaminophen [[place] 10-325] 1 tab PO Q6H PRN 7 Days #40 tab [Rx] Follow up Appointment(s)/Referral(s): True Hansen MD [Medical Doctor] - 2 Weeks Activity/Diet/Wound Care/Special Instructions: -Strict non-weight bearing of your left leg. Use a knee scooter, walker, or crutches for ambulation. - Keep splint in place. Keep splint clean, dry, and intact. - Elevate and ice operative leg to reduce pain and swelling. - Take pain medications as prescribed. Take Colace as a stool softener. Take Aspirin to prevent blood clots. - Follow up appointment with Dr. Hansen in the office in two weeks. - Call the office with any questions or concerns, Discharge Disposition: HOME SELF-CARE
--- NOTE | 2018-04-04 12:50 | PN ---
PROGRESS NOTE CHIEF COMPLAINT: Fracture of the left ankle and left wrist. HISTORY OF PRESENT ILLNESS: This lady is doing fairly well. Did not require Kumar catheter drainage. She has been cleared by Orthopedics to go home. PHYSICAL EXAM: Chest is clear. Cardiac exam is normal. Color is good. IMPRESSION: 1. Trimalleolar fracture left ankle. 2. Left radial fracture of the wrist. PLAN: Home today. MMODL / IJN: [id number] /
[2018-04-04 14:37] VITALS: BP 114/69; PULSE 99; TEMP 98.4
--- NOTE | 2018-04-04 14:39 | CONS ---
CONSULTATION CHIEF COMPLAINT: Trimalleolar malleolar fracture of the left ankle and fracture of the right wrist. HISTORY OF PRESENT ILLNESS: This is another admission for this 67-year-old white female, who fell and fractured her wrist and her ankle. She was admitted for these injuries about 2 weeks ago was brought in for surgery on the ankle. REVIEW OF SYSTEMS: She has had no problems with headaches, neurologic problems, chest pain, shortness of breath, cough, hemoptysis, abdominal pain, nausea, vomiting, hematemesis, melena, hematochezia, jaundice, renal failure, dysuria, frequency, urgency, foul-smelling urine, neurologic problems, diabetes, etc. Past medical history, family history and personal and social histories are otherwise unremarkable or non-contributory. Past medical history, family history personal and social history were normal otherwise. ALLERGIES: SHE IS ALLERGIC TO STATINS AND PENICILLIN. MEDICATIONS: Medications at home include Tylenol, aspirin, vitamin D3, stool softeners, OxyContin for pain, lisinopril, pravastatin, and VESIcare. PHYSICAL EXAM: Temp is 99.4 with a pulse of 113, respirations of 12 and blood pressure 110/65. In general she appeared to be well developed, well nourished, no acute distress. Skin color is normal. Skin is warm, dry. Head, ears, eyes, nose, mouth and throat were normal. Chest is clear. Cardiac exam is normal. Abdomen is soft, nontender. Extremities demonstrated casts on the wrist and the ankle. Neurologically he is intact. IMPRESSION: 1. Trimalleolar fracture of the left ankle. 2. Radial fracture of the wrist. PLAN: No change in programs and proceed with Surgery and postop recommendations. MMODL / IJN: [id number] /
--- NOTE | 2018-04-10 11:09 | CDI ---
Outpatient Documentation Clarification Form Date: 04/10/18 CDS/Blockman Name: Chey Rodriguez Phone: If any questions, call Vee Russo Display Artist at [phone] Patient Name: Margaret Corral Admit Date: 04/03/18 Discharge Date: 04/04/18 ATTENTION: The [facility] Coding Staff appreciate your assistance in clarifying documentation. Please respond to the clarification below the line at the bottom and electronically sign. The [facility] Coding staff will review the response and follow-up if needed. Please note: Queries are made part of the Legal Health Record. If you have any questions, please contact the Display Artist. Dear Dr. Hansen, The Anesthesiology Proc Note states that the patient was given a right popliteal nerve block, yet the ORIF surgery was performed on the left ankle. Please confirm that the patient, was in fact, given a right popliteal nerve block, or document that it was a left popliteal nerve block. Thank you for your kind consideration. All of my documentation is correct. I performed an ORIF of a left ankle. I am not an anesthesiologist and was not present at the block. I would suggest contacting the anesthesiologist who performed the block and have them make an addendum to their documentation and further clarify which side was given the block. I would assume it was the left, operative side, but again I wasn't there and it wasn't my procedure so I can't confirm. Thank you MTDIshmael
== END 2018-04-04 15:40 | disposition home or self-care (01) ==
LOC: OR 10:13 → 4SSUR 16:37 → OR 04-04 15:40
PROVIDERS: ATTEND Orthopaedic Surgery
DX: S82.852A Displaced trimalleolar fracture of left lower leg, initial encounter for closed fracture (principal); W10.9XXA Fall (on) (from) unspecified stairs and steps, initial encounter; Y92.009 Unspecified place in unspecified non-institutional (private) residence as the place of occurrence of the external cause; M85.872 Other specified disorders of bone density and structure, left ankle and foot; I95.9 Hypotension, unspecified; S52.502D Unspecified fracture of the lower end of left radius, subsequent encounter for closed fracture with routine healing; W10.9XXD Fall (on) (from) unspecified stairs and steps, subsequent encounter; I10 Essential (primary) hypertension; E78.5 Hyperlipidemia, unspecified; K21.9 Gastro-esophageal reflux disease without esophagitis; Z79.82 Long term (current) use of aspirin; Z79.891 Long term (current) use of opiate analgesic; Z79.899 Other long term (current) drug therapy; Z88.0 Allergy status to penicillin; Z88.8 Allergy status to other drugs, medicaments and biological substances; Z90.710 Acquired absence of both cervix and uterus; Z87.891 Personal history of nicotine dependence
CPT/HCPCS: 27822; 97163; 64450; 85025; 82306; 73600; C1713; J2250 ×2; J1100; J2405; J2001; J1650; J3010; J2795; J2370; J0330; J2704; J1170; 64493

== ENCOUNTER → 2019-01-25 | Outpatient (CLI) | payer MEDICARE ==
--- NOTE | 2019-01-26 10:53 | MM ---
Reason for exam: screening (asymptomatic). Last mammogram was performed 1 year and 4 months ago. History: Patient is postmenopausal. Family history of breast cancer in paternal grandmother at age 65. Physical Findings: A clinical breast exam by your physician is recommended on an annual basis and results should be correlated with mammographic findings. MG 3D Screening Mammo W/Cad Bilateral CC and MLO view(s) were taken. Prior study comparison: September 18, 2017, bilateral MG 3d screening mammo w/cad. August 30, 2016, bilateral MG screening mammo w CAD. The breast tissue is heterogeneously dense. This may lower the sensitivity of mammography. No suspicious abnormality. No significant changes when compared with prior studies. ASSESSMENT: Negative, BI-RAD 1 RECOMMENDATION: Routine screening mammogram of both breasts in 1 year.
== END | disposition home or self-care (01) ==
LOC: RADMAMWWP 11:04
PROVIDERS: ATTEND Family Medicine
DX: Z12.31 Encounter for screening mammogram for malignant neoplasm of breast (principal)
CPT/HCPCS: 77063; 77067

== ENCOUNTER → 2024-02-20 | Outpatient (CLI) | payer MEDICARE ==
--- NOTE | 2024-02-27 10:53 | MM ---
Reason for Exam: Screening (asymptomatic). Last mammogram was performed 1 year(s) and 1 month(s) ago. Patient History: Menarche at age 16. First Full-Term at age 21. Right ovary removed at age 40. Hysterectomy at age 40. Postmenopausal. Paternal grandmother had breast cancer, age 65. Risk Values: Mayuri 5 year model risk: 1.4%. NCI Lifetime model risk: 3.8%. Prior Study Comparison: 08/30/2016 Bilateral Screening Mammogram, [facility]. 09/18/2017 Bilateral Screening Mammogram, [facility]. 01/25/2019 Bilateral Screening Mammogram, [facility]. 01/10/2022 Bilateral Screening Mammogram, Unknown. 01/22/2023 Bilateral Screening Mammogram, Unknown. Tissue Density: There are scattered areas of fibroglandular density. Findings: Analyzed By CAD. Right breast: There is no suspicious group of microcalcifications or new suspicious mass. Left breast: There is no suspicious group of microcalcifications or new suspicious mass. Overall Assessment: Negative, BI-RAD 1 Management: Screening Mammogram of both breasts in [address] [facility] will attempt to contact patient to return for supplemental views and ultrasound if indicated. Patient should continue monthly self-breast exams. A clinical breast exam by your physician is recommended on an annual basis. This exam should not preclude additional follow-up of suspicious palpable abnormalities. Note on Mayuri scores and lifetime risk: 1. A Mayuri score greater than 3% is considered moderate risk. If this is the case, consider specialist referral to assess eligibility for a risk reducing agent. 2. If overall lifetime risk for the development of breast cancer is 20% or higher, the patient may qualify for future screening with alternating mammogram and breast MRI. [facility], , 02/27/2024 10:50 AM. Electronically signed and approved by: Dontae Amaya DO
== END | disposition home or self-care (01) ==
LOC: RADMAMWWP 14:44
PROVIDERS: ATTEND Family Medicine
DX: Z12.31 Encounter for screening mammogram for malignant neoplasm of breast (principal); R92.323 Mammographic fibroglandular density, bilateral breasts; Z78.0 Asymptomatic menopausal state; Z80.3 Family history of malignant neoplasm of breast; Z90.722 Acquired absence of ovaries, bilateral
CPT/HCPCS: 77063; 77067